=== PATIENT | male | born 1975 | race Hispanic/Latino ===

== ENCOUNTER 2019-05-28 15:13 | Emergency (ER) | payer OTHER ==
[~2019-05-28] VITALS: Ht 165.1 cm; Wt 128.9 kg
[~2019-05-28 15:13] MED LIST: ULTRAM 50MG50 MG PO
--- OUTSIDE RECORDS SUMMARY | 2019-05-28 15:15 | XMS REPORT ---
Author Author Vy Rhodes Organization [employer] Address Unknown Phone Unavailable Care Team Providers Care Seed Specialist Name Role Phone Vy Rhodes CP Unavailable Allergies, Adverse Reactions, Alerts Substance Reaction Event Type N.K.D.A. Info Not Available Non Drug Allergy Problems Problem Type Condition Code Onset Dates Condition Status Problem Sleep apnea in adult G47.30 Active Assessment Annual physical exam Z00.00 Active Problem Morbid obesity due to excess calories E66.01 Active Assessment Skin tags, multiple acquired L91.8 Active Assessment Morbid obesity due to excess calories E66.01 Active Assessment Sleep apnea in adult G47.30 Active Assessment Increased frequency of urination R35.0 Active Medications Medication Code System Code Instructions Start Date End Date Status Dosage NyQuil NDC 0 60-7.5-30-1000 MG/30ML Orally as needed (prn) Active 1 teaspoon Mucinex NDC [address]-02 600 MG by mouth daily Active 1 tablet as needed Vital Signs Date/Time: May 12, 2018 BMI 45.68 Index Weight 279.6 lbs Height 65.6 in Temperature 98.3 F Cardiac Monitoring Heart Rate 77 /min Blood Pressure Diastolic 86 mm Hg Blood Pressure Systolic 147 mm Hg Results No Known Results Summary Purpose [employer] Submission
--- OUTSIDE RECORDS SUMMARY | 2019-05-28 15:15 | XMS REPORT | Continuity of Care Document ---
Author Author [employer] Address Unknown Phone Unavailable Care Team Providers Care Store Receiver Name Role Phone PsomasFMG Unavailable Unavailable Problems Problem Status Onset Date Classification Date Reported Comments Source Sleep apnea in adult Active Problem 07/09/2018 [id number] Morbid obesity due to excess calories Active Problem 07/09/2018 [id number] Skin tags, multiple acquired Active Diagnosis 07/09/2018 [id number] Increased frequency of urination Active Diagnosis 07/09/2018 [id number] Medications Medication Details Route Status Patient Instructions Ordering Provider Order Date Source NyQuil 1 teaspoon Orally Active 60-7.5-30-1000 MG/30ML Orally as needed (prn) Carmelo [id number]..00625 Mucinex 1 tablet as needed by mouth Active 600 MG by mouth daily Carmelo 2.16.840.1.594949.4.391.11.70003 Allergies, Adverse Reactions, Alerts Substance Category Reaction Severity Reaction type Status Date Reported Comments Source N.K.D.A. Adverse Reaction Info Not Available Adverse Reaction Active 05/12/2018 [id number] Immunizations No Data Provided for This Section Results No Data Provided for This Section Pathology Reports No Data Provided for This Section Diagnostic Reports No Data Provided for This Section Consultation Notes No Data Provided for This Section Discharge Summaries No Data Provided for This Section History and Physicals No Data Provided for This Section Vital Signs Vital Sign Value Date Comments Source Weight 279.6 05/12/2018 [id number] Height 65.6 05/12/2018 2.16.840.1.186431.4.391..62124 Temperature Oral (F) 98.3 F 05/12/2018 2.16.840.1.651344.4.391.. Heart Rate 77 05/12/2018 2.16.840.1.628311.4.391.. Diastolic (mm Hg) 86 05/12/2018 2.16.840.1.149094.4.391. Systolic (mm Hg) 147 05/12/2018 2.16.840.1.426825.4.391..60033 Encounters No Data Provided for This Section Procedures No Data Provided for This Section Assessment and Plan No Data Provided for This Section Plan of Care No Data Provided for This Section Social History No Data Provided for This Section Family History No Data Provided for This Section Advance Directives No Data Provided for This Section Functional Status No Data Provided for This Section
--- NOTE | 2019-05-28 16:05 | Diagnostic Imaging Report ---
Exam: Left knee 3 views History: Pain Comparison: None. Findings: No fracture or malalignment. Joint spaces preserved. No abnormal soft tissue calcification or soft tissue defect. Impression: No acute osseous abnormality Signed by: Dr. Delbert Del Castillo M.D. on 05/28/2019 4:01 PM
[2019-05-28] MEDS ORDERED: HYDROCODONE/APAP 5MG-325MG TAB PO ONE (16:15)
[2019-05-28 16:57] VITALS: BP 111/71
== END 2019-05-28 16:56 | disposition home or self-care (01) ==
LOC: FSED 15:13
DX: M25.562 Pain in left knee (principal); Y93.11 Activity, swimming; M25.462 Effusion, left knee
CPT/HCPCS: 99283

== ENCOUNTER 2019-07-09 20:52 | Emergency (ER) | payer OTHER ==
[~2019-07-09] VITALS: Ht 165.1 cm; Wt 124.7 kg
--- OUTSIDE RECORDS SUMMARY | 2019-07-09 20:54 | XMS REPORT ---
Author Author [facility] Address Unknown Phone Unavailable Care Team Providers Care Hris Analyst Name Role Phone Alta WHITE Unavailable Unavailable Problems This patient has no known problems. Allergies, Adverse Reactions, Alerts This patient has no known allergies or adverse reactions. Medications This patient has no known medications. Results Test Description Test Time Test Comments Text Results Atomic Results Result Comments KNEE 3VW LT - HOPD 2019-05-28 16:00:00 [place] [address] Patient Name: NAPOLEON ROBBINS III MR #: [id number] : 1975 Age/Sex: 43/M Req #: [id number] Adm Physician: Ordered by: TANISHA WHITE MD Report #: [id number] Location: [facility] Room/Bed: Procedure: [id number] HOPD/KNEE 3VW LT - HOPD Exam Date: 05/28/19 Exam Time: 1558 REPORT STATUS: Signed Exam: Left knee 3 views History: Pain Comparison: None. Findings: No fracture or malalignment. Joint spaces preserved. No abnormal soft tissue calcification or soft tissue defect. Impression: No acute osseous abnormality Signed by: Dr. Sadiq Nguyen M.D. on 05/28/2019 4:01 PM Dictated By: SADIQ NGUYEN MD 1601 Transcribed By: DAILY on 05/28/19 1601 COPY TO: TANISHA WHITE MD
--- OUTSIDE RECORDS SUMMARY | 2019-07-09 20:54 | XMS REPORT | Summary of Care ---
Author Author SADIQ GEORGES M.D. Organization Unknown Address [facility] Phone Unavailable Care Team Providers Care Car Restorer Name Role Phone SADIQ GEORGES M.D. Unavailable Unavailable SADIQ BELTRAN Unavailable Unavailable Unavailable Unavailable Functional Status Name Dates Details Functional status health issues are not documented Status: Name Dates Details Cognitive status health issues are not documented Status: Problems Name Dates Details Tendinitis of left quadriceps tendon (727.09, M76.892) Status: Active Other internal derangements of left knee (717.89, M23.8X2) Status: Active Medications Name Dates Details Meloxicam 7.5 MG Oral Tablet TAKE 1 TABLET DAILY WITH FOOD. Quantity: 30 SADIQ GEORGES M.D. * Start : 08-Jun-2019 Active Methocarbamol 500 MG Oral Tablet TAKE 1 TABLET 3 TIMES DAILY. * Quantity: 30 Refills: 1 SADIQ GEORGES M.D. * Start : 08-Jun-2019 Active Ibuprofen 800 MG Oral Tablet * Refills: 0 Active Allergies and Adverse Reactions Name Dates Details iodine (Allergy) Status: Active Past Medical History Name Dates Details History of No significant past medical history Status: Resolved Procedures Procedure Dates Details MR Knee wo contrast [id number] Date: 08-Jun-2019 History of Hernia repair Completed Immunization Name Dates Details Immunizations not documented Social History Name Dates Details - Status: Name Dates Details Never smoker Vital Signs Date Test Result Details No Known Vitals to report Results Date Description Value Details Results not documented Plan of Care Name Dates Details Planned Observations Planned Goals not documented Interventions Provided Medication Changes* Meloxicam 7.5 MG Oral Tablet - Start * Methocarbamol 500 MG Oral Tablet - Start Labs/Procedures/Imaging* MR Knee wo contrast [id number]; To Be Done: 08 Jun 2019 Plan* Patient Education/Instructions: * Patient Education Provided * Reassurance * Patient/Parent to call or return with any abnormal changes * Orders: * Physical Therapy * Medications: * Medications (prescribed or recommended at this visit): Medication was prescribed or recommended. Dosage, administration, and common potential side effects were reviewed. Please confirm and review medication information and directions with the pharmacist. * - Mobic 7.5mg. Take 1 daily as needed for pain. Mobic (meloxicam) is an anti-inflammatory, pain medication. Take with food and only as prescribed by a physician. * - Robaxin 750mg. Take 2 every 8 hours as needed for spasm. Robaxin (methocarbamol) is a muscle relaxant medication. Use only as directed. DO NOT drive or operate machinery while using this medication. * - Voltaren Gel (diclofenac topical gel) is a topical, nonsteroidal anti-inflammatory medication. Apply Voltaren gel four times daily to the affected area as needed for pain. Use the dosing card for application. DO NOT exceed 32g per day. Do not take oral NSAIDs while using this medication. * - Take 500mg - 1000mg of acetaminophen (Tylenol) every 4-6 hours as needed for relief of pain, discomfort, or fever. Do NOT take more than 4000mg in a 24 hour period (can cause liver damage in higher doses). * MRI Scan MRI: Without Contrast and Left knee * Follow Up: * Return to the clinic after imaging study completed or as needed. Instructions Name Dates Details Instructions not documented Encounters Appointment; SADIQ GEORGES M.D. Encounter Diagnosis: Problem not documented On: 08-Jun-2019 10:15
--- OUTSIDE RECORDS SUMMARY | 2019-07-09 20:54 | XMS REPORT | Continuity of Care Document ---
Author Author [facility] Address Unknown Phone Unavailable Care Team Providers Care Electrical Power Station Technician Name Role Phone [employer] Unavailable Unavailable Problems Problem Status Onset Date Classification Date Reported Comments Source Sleep apnea in adult Active Problem 07/09/2018 2.16840.1.741280.4.391.11.31573 Morbid obesity due to excess calories Active Problem 07/09/2018 2.16840.1.154742.4.391.11.29565 Skin tags, multiple acquired Active Diagnosis 07/09/2018 2.16840.1.308417.4.391.11.05620 Increased frequency of urination Active Diagnosis 07/09/2018 2.16840.1.358239.4.391.11.87288 Medications Medication Details Route Status Patient Instructions Ordering Provider Order Date Source NyQuil 1 teaspoon Orally Active 60-7.5-30-1000 MG/30ML Orally as needed (prn) Carmelo 2.16.840.1.975485.4.391..19661 Mucinex 1 tablet as needed by mouth Active 600 MG by mouth daily Carmelo 2.16.840.1.506714.4.391.11.98173 Allergies, Adverse Reactions, Alerts Substance Category Reaction Severity Reaction type Status Date Reported Comments Source N.K.D.A. Adverse Reaction Info Not Available Adverse Reaction Active 05/12/2018 2.16840.1.431976.4.391.11.20050 Immunizations No Data Provided for This Section [...] Value Date Comments Source Weight 279.6 05/12/2018 2.16.840.1.339431.4.391.11.92275 Height 65.6 05/12/2018 2.16.840.1.213875.4.391..34222 Temperature Oral (F) 98.3 F 05/12/2018 2.16.840.1.314299.4.391.. Heart Rate 77 05/12/2018 2.16.840.1.824822.4.391.. Diastolic (mm Hg) 86 05/12/2018 2.16.840.1.014831.4.391. Systolic (mm Hg) 147 05/12/2018 2.16.840.1.454083.4.391..08695 Encounters No Data Provided for This Section [...]
[2019-07-09] MEDS ORDERED: BACTRIM DS TAB1 EACH PO (21:09)
[2019-07-09] MEDS ORDERED: KEFLEX500 MG PO (21:09)
[2019-07-09] MEDS ORDERED: VANCOMYCIN 1GM/NS 250 ML 250 ML IV ONE (21:15)
[2019-07-09] MEDS ORDERED: SODIUM CHLORIDE 0.9% 1000ML 1,000 ML IV SCH (21:15)
[2019-07-09] MEDS ORDERED: VANCOMYCIN 1GM/NS 250 ML 250 ML ONE (21:18)
[2019-07-09] MEDS ORDERED: SODIUM CHLORIDE 0.9% 1000ML 1,000 ML ONE (21:18)
[2019-07-09 23:09] VITALS: BP 160/97
== END 2019-07-09 23:13 | disposition home or self-care (01) ==
LOC: FSED 20:52
DX: L03.115 Cellulitis of right lower limb (principal); Z91.041 Radiographic dye allergy status
CPT/HCPCS: 80053; 85025; 96365; 99283; J3370; J7030

== ENCOUNTER 2019-08-21 09:54 | Inpatient (IN) | payer OTHER ==
[~2019-08-21] VITALS: Ht 167.6 cm; Wt 125.6 kg
[~2019-08-21 09:54] MED LIST changes: +BACTRIM DS TAB1 EACH PO; +KEFLEX500 MG PO
[2019-08-21] MEDS ORDERED: SODIUM CHLORIDE 0.9% 1000ML 1,000 ML IV STA (10:09)
--- NOTE | 2019-08-21 10:19 | NUR ---
[facility] [facility] CALLED FOR [facility] AND [facility]ACT[facility]
[2019-08-21] MEDS: VANCOMYCIN 1GM/NS 250 ML 250 ML IV SCH ×3 (10:21→22:06)
[2019-08-21] MEDS: PIPER-TAZ 3.375 GM 50 ML IV SCH ×3 (10:22→22:55)
[2019-08-21] MEDS ORDERED: PIPER-TAZ 3.375 GM 50 ML ONE (10:27)
[2019-08-21] MEDS ORDERED: VANCOMYCIN 1GM/NS 250 ML 250 ML ONE (10:28)
[2019-08-21] MEDS ORDERED: SODIUM CHLORIDE 0.9% 1000ML 1,000 ML ONE (10:28)
[2019-08-21] MEDS ORDERED: ACETAMINOPHEN 325 MG TAB ONE (10:40)
[2019-08-21] MEDS ORDERED: TYLENOL # 31 EA PO (10:41)
[2019-08-21] MEDS ORDERED: MOTRIN800 MG (10:41)
[2019-08-21] MEDS ORDERED: MELOXICAM7.5 MG (10:41)
[2019-08-21] MEDS ORDERED: METHOCARBAMOL500 MG (10:41)
--- NOTE | 2019-08-21 10:42 | NUR ---
[facility] called for transport
[2019-08-21] MEDS ORDERED: IBUPROFEN 200 MG TAB PO PRN (10:45)
--- NOTE | 2019-08-21 10:47 | NUR ---
"nurse going to be [place]an[place], but he isn't here right now, so I'm gonna have him call you back."
[2019-08-21] MEDS ORDERED: ACETAMINOPHEN 325 MG TAB PO ONE (11:00)
--- NOTE | 2019-08-21 11:04 | NUR ---
2nd attempt report;
[2019-08-21 11:21] VITALS: BP 138/69
[2019-08-21] MEDS ORDERED: CLONIDINE HCL 0.1 MG TAB PO PRN (11:30)
[2019-08-21] MEDS ORDERED: HYDRALAZINE HCL 20 MG/ML VIAL IV PRN (11:30)
[2019-08-21] MEDS ORDERED: ENALAPRILAT IV INJ 1.25 MG/ML VIAL IV PRN (11:30)
[2019-08-21] MEDS ORDERED: ZOLPIDEM TARTRATE 5 MG TAB PO PRN (11:30)
[2019-08-21] MEDS ORDERED: DIPHENHYDRAMINE HCL INJ 50 MG/ML VIAL IV PRN (11:30)
[2019-08-21] MEDS ORDERED: LACTULOSE SYRUP 20 GM/30 ML UDC PO PRN (11:30)
--- NOTE | 2019-08-21 11:58 | NUR ---
Patient a/ox3, no resp distress, received from [facility], cellulitis to left foot, failed outpatient treatment, currently on Vancomycin and Pectezo abx, tolerated well, VSS, afebrile, call light within reach, bed in low locked position, will monitor.
[2019-08-21] MEDS ORDERED: IBUPROFEN 600 MG TAB PO PRN (12:15)
[2019-08-21 12:35] VITALS: BP 138/69
[2019-08-21 16:38] VITALS: BP 141/65
--- NOTE | 2019-08-21 17:54 | NUR ---
Patient presenting with fever 100.9, medicated with Tylenol and Ibuprofen for throbbing pain to left foot. Blood cultures pending.
[2019-08-21] MEDS: ACETAMINOPHEN 325 MG TAB PO PRN (18:05)
--- NOTE | 2019-08-21 19:09 | NUR ---
Patient alert and responsive, pains well controlled, no resp distress, call light within reach, report given to on coming nurse and rounds completed. Patient stable.
[2019-08-21 20:00] VITALS: BP 108/52
[2019-08-21] MEDS ORDERED: CELECOXIB 200 MG CAP PO ONE (22:15)
[2019-08-21] MEDS ORDERED: HYDROCODONE/APAP 10MG-325MG TAB PO PRN (22:15)
[2019-08-21 23:50] VITALS: BP 108/52
[2019-08-22] VITALS (9 sets, daily range): BP systolic 108–146; BP diastolic 62–90
[2019-08-22] MEDS: PIPER-TAZ 3.375 GM 50 ML IV SCH ×4 (05:03→23:58)
[2019-08-22 06:20] LABS: BASOPHILS % 0.3 % (0.0-1.0); EOSINOPHILS # (AUTO) 0.2 (0.0-0.4); HEMATOCRIT 43.8 % (38.2-49.6); LYMPHOCYTES # (AUTO) 1.6 (1.0-3.2); LYMPHOCYTES % 17.4 % (18.0-39.1); MEAN CORPUSCULAR HEMOGLOBIN 29.9 pg (28-32); MEAN CORPUSCULAR VOLUME 93.6 fL (81-99); MONOCYTES # (AUTO) 1.1 (0.2-0.8); NEUTROPHILS # (AUTO) 6.2 (2.1-6.9); NEUTROPHILS % 67.6 % (38.7-80.0); PLATELET COUNT 177 x10e3/uL (140-360); RED BLOOD COUNT 4.68 x10e6/uL (4.3-5.7); RED CELL DISTRIBUTION WIDTH 12.7 % (11.7-14.4)
[2019-08-22 06:37] LABS: ANION GAP 13.2 mmol/L (8-16); BLOOD UREA NITROGEN 11 mg/dL (7-26); BUN/CREATININE RATIO 11 (6-25); CALCIUM 8.7 mg/dL (8.4-10.2); CARBON DIOXIDE 25 mmol/L (22-29); CHLORIDE 106 mmol/L (98-107); CREATININE, SERUM 0.98 mg/dL (0.72-1.25); EST GLOMERULAR FILTRATION RATE > 60 ML/MIN (60-); GLUCOSE 114 mg/dL (74-118); POTASSIUM 4.2 mmol/L (3.5-5.1); SODIUM 140 mmol/L (136-145)
--- NOTE | 2019-08-22 07:00 | NUR ---
RECEIVED PATIENT ASLEEP AT THIS TIME. NO SIGNS OF DISTRESS. BED LOW, WHEELS LOCKED, SIDE RAILS X2. CALL LIGHT IN REACH WILL CONTINUE TO MONITOR PATIENT.
[2019-08-22] MEDS: CELECOXIB 100 MG CAP PO SCH ×2 (08:42→17:01)
--- NOTE | 2019-08-22 09:45 | NUR ---
PATIENT A/O X3, EVEN RESPIRATIONS ON RA. LUNG SOUNDS CLEAR TO AUSCULTATION. BOWEL SOUNDS PRESENT X4. LEFT UA 20 GAUGE IV SL. REDNESS TO RIGHT MALDONADO. PATIENT AMBULATES INDEPENDENTLY. NO PAIN AT THIS TIME. CALL LIGHT IN REACH WILL CONTINUE TO MONITOR PATIENT.
[2019-08-22] MEDS: VANCOMYCIN 1GM/NS 250 ML 250 ML IV SCH ×2 (10:34→22:36)
--- NOTE | 2019-08-22 13:09 | Progress Note ---
DATE: 08/22/2019 SUBJECTIVE: Mr. Duke is seen today. He is currently lying in bed comfortably. The leg is slightly better. He is feeling slightly better. There is still some redness and swelling. REVIEW OF SYSTEMS: Otherwise unremarkable. PHYSICAL EXAMINATION: GENERAL: He is currently alert, oriented, does not seem to be in acute distress. VITAL SIGNS: Stable currently, afebrile. HEENT: Not icteric. NECK: Supple. CHEST: Clear. HEART: S1, S2. No S3, S4, or murmur. ABDOMEN: Soft and obese. No tenderness. No hepatosplenomegaly. EXTREMITIES: No edema. The leg, there is still redness and swelling as mentioned above, but a lot better. LABORATORY DATA: Blood cultures, no growth 24 hours. White count 9.08 and hemoglobin 14. Sodium 140, potassium 4.2, and creatinine 0.98. IMPRESSION: 1. Cellulitis of the leg is slowly getting better. 2. Obesity. 3. Hypertension. RECOMMENDATION: Since he failed oral antibiotic, we will get a trough. We will get a PICC line. Continue vancomycin. We will arrange home IV antibiotic for a week with close observation. MD BENEDICT Serrato/GERRI /[id number]
--- NOTE | 2019-08-22 14:45 | History and Physical ---
PRIMARY CARE PHYSICIAN: Vy Rhodes MD. COMPOUND COATING MACHINE OFFBEARER: Chhaya Cristobal MD. CHIEF COMPLAINT: Recurrent right lower extremity cellulitis below the knee area. HISTORY OF PRESENT ILLNESS: This is a 44-year-old male with right lower extremity cellulitis started approximately 3 weeks ago. The patient did go to the emergency room, was given antibiotics. The patient subsequently went home, finished up the antibiotic, and the infection resolved. However, the patient's infection to the lower extremity recurred and the patient was given antibiotics again by his family physician and then subsequently did not improve, where the patient then subsequently went to the emergency room for admission. The patient is currently on Zosyn and vancomycin. The patient is seen Dr. Chhaya Cristobal for consultation. He is stable. PAST MEDICAL HISTORY: Osteoarthritis. PAST SURGICAL HISTORY: Noncontributory. SOCIAL HISTORY: The patient does not smoke or use alcohol. No regular drugs. ALLERGIES: TO IODINE. HOME MEDICATIONS: Tylenol #3, ibuprofen, meloxicam, and Robaxin. PHYSICAL EXAMINATION: VITAL SIGNS: Temperature is 96, blood pressure 108/74, pulse rate 52, and respirations 18. GENERAL: The patient is not in acute distress. He is awake. HEENT: Normocephalic and atraumatic. Pupils reactive. Anicteric. NECK: Supple grossly. PULMONARY: Diminished breath sounds without any wheezing or rales. CARDIOVASCULAR: S1 and S2. Regular rate and rhythm. ABDOMEN: Soft and obese. EXTREMITIES: Right lower extremity; in the anterior dorsal surface area of the lower extremity below the knee and above the ankle, there is patchy redness without any portal of entry and without any discharge. NEUROLOGIC: No focal deficit. LABORATORY DATA: Sodium 140, potassium 4.2, chloride 106, bicarb 25, BUN 11, creatinine 0.9, and glucose 114. WBC is 9.1, hemoglobin 14, hematocrit 43.8, and platelets is 177. IMPRESSION: Right lower extremity cellulitis, failed outpatient treatment and multiple antibiotics. It went away and then reoccur and then failed the treatment. PLAN: Continue with current antibiotics. Consultation with Dr. Chhaya Cristobal. We will monitor the patient closely. It does not seem to be a vascular problem. There is no sign of venous stasis ulcer or skin changes. There is no significant varicosity. Pulses are intact both bilaterally. The patient does have onychomycosis of the toenail, but other than that, there is no other significant abnormality. MD ALE Benz/GERRI /[id number]
--- NOTE | 2019-08-22 16:28 | NUR ---
PICC tip is in SVC per radiologist Dr Schwarz. PICC okay to use
--- NOTE | 2019-08-22 16:31 | Diagnostic Imaging Report ---
EXAMINATION: CHEST XRAY LINE PLACEMENT INDICATION: Line placement COMPARISON: None FINDINGS: LINES/TUBES:Right PICC line terminates in the superior vena cava. LUNGS:The lungs are moderately inflated. No focal consolidation or pulmonary edema. PLEURA:No pleural effusion or pneumothorax. MEDIASTINUM:The cardiomediastinal silhouette appears normal in size and shape. BONES/SOFT TISSUES:No acute osseous injury. ABDOMEN:No free air under the diaphragm. IMPRESSION: Right PICC line terminates in the superior vena cava. No focal pneumonia or pulmonary edema. Signed by: Carlitos Schwarz MD on 08/22/2019 4:28 PM
[2019-08-23] VITALS (7 sets, daily range): BP systolic 110–160; BP diastolic 61–78
--- NOTE | 2019-08-23 03:54 | Consultation ---
DATE OF CONSULTATION: 08/22/2019 Discussed with the ER physician. HISTORY OF PRESENT ILLNESS: The patient, who is a very pleasant 44-year-old male. He is telling me 3 weeks ago he had history of cellulitis of his leg. He went to see the ER physician. The patient was given vancomycin and then he was discharged with Bactrim and clindamycin without any improvement, and he came back. He is telling me that originally the rash got better, but then it seem never went away, but it came back now with fever and chills. The rash is a lot worse. He went to the emergency room where he was admitted for IV antibiotics since he failed oral antibiotic. The patient is complaining of pain, redness and swelling of his right leg. 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 HOME MEDICATIONS: He is on Celebrex, Tylenol, Catapres, and Vasotec. PAST SURGICAL HISTORY: Denies. PAST MEDICAL HISTORY: Obesity and hypertension. FAMILY HISTORY: Noncontributory. REVIEW OF SYSTEMS: HEENT: Negative. PULMONARY: Negative. CARDIAC: Negative. Beside what mentioned above, he denies any. LABORATORY DATA: Reviewed. Chart reviewed. PHYSICAL EXAMINATION: GENERAL: He is currently alert and oriented. Does not seem to be in acute distress. VITALS STABLE: Stable, currently afebrile. HEENT: He is not icteric. Normocephalic. NECK: Supple. No JVD. No lymphadenopathy. No thyromegaly. CHEST: Clear bilateral. HEART: S1 and S2. No S3, S4, or murmur. ABDOMEN: Soft. Bowel sounds present. No tenderness. Obese. EXTREMITIES: There is redness and erythema involving his right leg about 15 cm in length and 5 in wide with some induration. Of interest, when he was in the emergency room, his temperature was 100.5, heart rate 106, and blood pressure 160/87. His height is 5 feet 5 inches and his weight is 165 pounds. IMPRESSION: 1. Cellulitis of the leg, early sepsis due to cellulitis, failed oral antibiotic. Agree with vancomycin. Agree with Zosyn. Discussed with the patient. We will observe clinically. We will reassess this. 2. He may need to be on a week or 2 of IV antibiotics since he failed oral antibiotic. 3. Lab data reviewed. Sodium 140, potassium 4.2, his BUN 11, creatinine 0.98 with hemoglobin of 14. 4. We will follow with you. Thank you for asking me to see this patient. MD BENEDICT Serrato/MODJesus /[id number]
[2019-08-23] MEDS: PIPER-TAZ 3.375 GM 50 ML IV SCH ×3 (05:30→16:10)
[2019-08-23] MEDS: VANCOMYCIN 1GM/NS 250 ML 250 ML IV SCH ×2 (08:46→21:37)
[2019-08-23] MEDS: CELECOXIB 100 MG CAP PO SCH ×2 (08:46→16:10)
[2019-08-23] MEDS: ACETAMINOPHEN 325 MG TAB PO PRN (10:41)
--- NOTE | 2019-08-23 15:56 | NUR ---
Received call from HARLEY CM partner integration planner Ethel from [employer] [employer]. [phone]. She states she understands patient may need IV abx for home, states these companies are in network: [employer], [employer], [employer] Received order from Dr. Cristobal for IV antibiotics for OP. Patient needs IV Vancomycin 1G q12 for 10 days for leg cellulitis. He states is concerned about pricing. Call [employer] ([employer]) for pricing estimate who states they need a facesheet. Spoke to family about need for antibiotics, they give consent to send info to [employer]. Faxed info to [employer], awaiting a response.
--- NOTE | 2019-08-23 17:23 | Progress Note ---
DATE: SUBJECTIVE: Mr. Casey is feeling better today. The leg is slowly getting better. REVIEW OF SYSTEMS: HEENT: Negative. PULMONARY: Negative. CARDIAC: Negative. LABORATORY DATA: Reviewed. Cultures reviewed. There is no new data. His vancomycin trough was 6.2. PHYSICAL EXAMINATION: GENERAL: He is currently alert, oriented, does not seem to be in acute distress. VITAL SIGNS: Stable, afebrile. HEENT: Normocephalic, not icteric. NECK: Supple. CHEST: Clear. HEART: S1 and S2. No S3, S4, or murmurs. ABDOMEN: Soft and obese. EXTREMITIES: Right leg erythema and edema subsiding, it is about 10 to 5 cm, but seems to be less edematous. IMPRESSION AND PLAN: Cellulitis of the right leg, failed oral antibiotic. I would recommend to continue vancomycin for another 10 days. PICC line was inserted. Discussed with the patient. Discussed with his , she wants to know what is her share if he goes outpatient. I told Case Management was going to talk with the insurance to give her the information. MD BENEDICT Serrato/GERRI /[id number]
--- NOTE | 2019-08-23 19:10 | NUR ---
REPORT TAKEN FROM MORNING RN.STABLE CONDITION.
--- NOTE | 2019-08-23 19:10 | NUR ---
Report given to oncoming nurse of patient's status. No s/s of acute distress noted. at bedside call light within reach.
--- NOTE | 2019-08-23 21:44 | NUR ---
Assessment done.no pain voiced.no resp.distress.bed locked and in lowest position.phone and call light within reach.instructed to call for assistance as needed.
[2019-08-24] MEDS: PIPER-TAZ 3.375 GM 50 ML IV SCH ×2 (00:03→05:32)
[2019-08-24 00:52] VITALS: BP 115/57
[2019-08-24 04:42] VITALS: BP 121/58
--- NOTE | 2019-08-24 06:40 | NUR ---
Bed side shift report given to the oncoming Rn.stable condition.
[2019-08-24] MEDS ORDERED: SODIUM CHLORIDE 0.9% 250ML 250 ML ONE (07:22)
[2019-08-24 07:56] VITALS: BP 106/52
[2019-08-24 08:03] VITALS: BP 117/69
[2019-08-24] MEDS: CELECOXIB 100 MG CAP PO SCH ×2 (08:57→17:56)
[2019-08-24 09:14] LABS: BASOPHILS % 0.4 % (0.0-1.0); EOSINOPHILS # (AUTO) 0.3 (0.0-0.4); HEMATOCRIT 45.7 % (38.2-49.6); HEMOGLOBIN 14.7 g/dL (14.0-18.0); LYMPHOCYTES # (AUTO) 1.9 (1.0-3.2); LYMPHOCYTES % 28.3 % (18.0-39.1); MEAN CORPUSCULAR HGB CONC 32.2 g/dL (31-35); MEAN CORPUSCULAR VOLUME 93.3 fL (81-99); MONOCYTES # (AUTO) 0.5 (0.2-0.8); MONOCYTES % 7.1 % (4.4-11.3); NEUTROPHILS % 58.6 % (38.7-80.0); PLATELET COUNT 223 x10e3/uL (140-360); RED CELL DISTRIBUTION WIDTH 12.6 % (11.7-14.4)
[2019-08-24 09:35] LABS: ANION GAP 13.9 mmol/L (8-16); BLOOD UREA NITROGEN 11 mg/dL (7-26); BUN/CREATININE RATIO 13 (6-25); CALCIUM 9.3 mg/dL (8.4-10.2); CARBON DIOXIDE 25 mmol/L (22-29); CHLORIDE 103 mmol/L (98-107); CREATININE, SERUM 0.88 mg/dL (0.72-1.25); EST GLOMERULAR FILTRATION RATE > 60 ML/MIN (60-); GLUCOSE 108 mg/dL (74-118); POTASSIUM 3.9 mmol/L (3.5-5.1); SODIUM 138 mmol/L (136-145)
--- NOTE | 2019-08-24 10:00 | NUR ---
Visit made by the Spiritual Care Department Pastoral Visitor, Omaira Fisher. PV provided prayer, hospitality, and communion. Pastoral Visitor informed pt/family of the scope of [facility] and availability. MARIKA VITAL [employer] [employer] Spiritual Care Department O: [phone] Pager: [phone] ([phone] number calling from)
[2019-08-24] MEDS: VANCOMYCIN 1GM/NS 250 ML 250 ML IV SCH (10:19)
--- NOTE | 2019-08-24 11:14 | NUR ---
Spoke to Jakob farnsworth about pricing for IV antibiotics. Marcela states each dose of IV meds is about 12.50 dollars a day and each nurse visit is about 15 dollars. Discussed with patient and who agree to this pricing. Spoke to Riky to see if there is anything else needed before d/c, updated clinicals faxed. Marcela will reach out to patient to collect payment then patient will be ready to d/c. Notified patient of this.
[2019-08-24 12:25] VITALS: BP 137/84
[2019-08-24] MEDS ORDERED: PIPER-TAZ 3.375 GM 50 ML IV SCH (14:00)
[2019-08-24] MEDS ORDERED: ZOFRAN4 MG SL (15:50)
[2019-08-24] MEDS ORDERED: CELEBREX100 MG PO (15:52)
[2019-08-24 16:30] VITALS: BP 121/60
--- NOTE | 2019-08-24 16:41 | NUR ---
paged to notify patient cleared to discharge from ID standpoint. Awaiting call back
--- NOTE | 2019-08-24 17:41 | NUR ---
Patient states " I want to go home" Repaged
--- NOTE | 2019-08-24 17:46 | NUR ---
Per "discharge patient"
--- NOTE | 2019-08-24 18:00 | NUR ---
Taken via wheelchair to personal car. Accompanied by . AAOX4 to time, person, place, situation. Respirations even and unlabored. PICC line dressing clean, dry, and intact.( Patient discharged with PICC line as ordered for IV antibiotics). No signs of infiltration noted. Discharge instructions, rx, and all personal belongings taken with patient.
== END 2019-08-24 18:00 | disposition home or self-care (01) | DRG 603 ==
LOC: FSED 09:54 → ERHOLD 10:22 → MED/SURG 11:38
PROVIDERS: ADMIT Internal Medicine; ATTEND Internal Medicine
PROC: 02HV33Z Insertion of Infusion Device into Superior Vena Cava, Percutaneous Approach (ICD-10-PCS; principal; 2019-08-22)
DX: L03.115 Cellulitis of right lower limb (principal); Z68.41 Body mass index [BMI] 40.0-44.9, adult; I10 Essential (primary) hypertension; I87.2 Venous insufficiency (chronic) (peripheral); E66.9 Obesity, unspecified
CPT/HCPCS: 36415; 36569; 71045; 80048; 80202; 85025; 87040; 99284; J2543; J3370; J7030; J7050

== ENCOUNTER 2019-09-27 11:19 | Emergency (ER) | payer OTHER ==
[~2019-09-27] VITALS: Ht 167.6 cm; Wt 125.6 kg
[~2019-09-27 11:19] MED LIST changes: +CELEBREX100 MG PO; +MELOXICAM7.5 MG; +METHOCARBAMOL500 MG; +MOTRIN800 MG; +TYLENOL # 31 EA PO; +ZOFRAN4 MG SL
== END 2019-09-27 12:11 | disposition home or self-care (01) ==
LOC: FSED 11:19
DX: L03.115 Cellulitis of right lower limb (principal); B35.3 Tinea pedis; B35.1 Tinea unguium
CPT/HCPCS: 99282

== ENCOUNTER 2021-03-24 12:27 | Emergency (ER) | payer BC ==
[~2021-03-24] VITALS: Ht 167.6 cm; Wt 128.8 kg
[2021-03-24] MEDS ORDERED: METOCLOPRAMIDE HCL 10 MG/2ML VIAL IM STA (12:41)
[2021-03-24] MEDS ORDERED: KETOROLAC TROMETHAMINE 60 MG/2 ML VIAL IM ONE (12:45)
[2021-03-24] MEDS ORDERED: DIPHENHYDRAMINE HCL 25 MG CAP PO ONE (12:45)
[2021-03-24] MEDS ORDERED: METOCLOPRAMIDE HCL 10 MG/2ML VIAL ONE (13:15)
[2021-03-24] MEDS ORDERED: DIPHENHYDRAMINE HCL 25 MG CAP ONE (13:15)
[2021-03-24] MEDS ORDERED: KETOROLAC TROMETHAMINE 60 MG/2 ML VIAL ONE (13:15)
[2021-03-24] MEDS ORDERED: FIORICET 50-301 EACH PO (13:47)
== END 2021-03-24 14:02 | disposition home or self-care (01) ==
LOC: FSED 12:34
DX: R51.9 Headache, unspecified (principal)
CPT/HCPCS: 70450; 96372; 99283; J1885; J2765

== ENCOUNTER 2021-08-15 07:47 | Emergency (ER) | payer BC ==
[~2021-08-15] VITALS: Ht 165.1 cm; Wt 124.7 kg
[~2021-08-15 07:47] MED LIST changes: +FIORICET 50-301 EACH PO
[2021-08-15] MEDS ORDERED: COLCRYS0.6 MG PO (08:09)
[2021-08-15] MEDS ORDERED: INDOCIN50 MG PO (08:09)
[2021-08-15] MEDS ORDERED: HYDROCODONE/APAP 5MG-325MG TAB PO ONE (08:15)
== END 2021-08-15 09:37 | disposition home or self-care (01) ==
LOC: FSED 07:50
DX: M25.572 Pain in left ankle and joints of left foot (principal); M10.9 Gout, unspecified
CPT/HCPCS: 99283

== ENCOUNTER 2022-05-27 19:21 | Emergency (ER) | payer BC ==
[~2022-05-27] VITALS: Ht 167.6 cm; Wt 122.5 kg
[~2022-05-27 19:21] MED LIST changes: +COLCRYS0.6 MG PO; +INDOCIN50 MG PO
[2022-05-27] MEDS ORDERED: VALACYCLOVIR500 MG PO (20:25)
[2022-05-27] MEDS ORDERED: PREDNISONE50 MG PO (20:25)
[2022-05-27] MEDS ORDERED: DEXAMETHASONE SOD PHOS INJ 4 MG/ML SDV ONE (20:46)
[2022-05-27 21:00] VITALS: BP 133/0
[2022-05-27] MEDS ORDERED: DEXAMETHASONE SOD PHOS INJ 4 MG/ML SDV IV ONE (21:15)
== END 2022-05-27 21:00 | disposition home or self-care (01) ==
LOC: FSED 19:25
DX: R20.0 Anesthesia of skin (principal); G51.0 Bell's palsy; M10.9 Gout, unspecified
CPT/HCPCS: 70450; 80053; 82553; 84484; 85025; 93005; 96374; 99284; J1100

== ENCOUNTER 2022-08-06 01:23 | Emergency (ER) | payer BC ==
[~2022-08-06] VITALS: Ht 165.1 cm; Wt 132.0 kg
[~2022-08-06 01:23] MED LIST changes: +PREDNISONE50 MG PO; +VALACYCLOVIR500 MG PO
[2022-08-06] MEDS ORDERED: IBUPROFEN 600 MG TAB ONE (02:02)
[2022-08-06] MEDS ORDERED: ONDANSETRON HCL 4 MG ORAL DISINTEGRATING TAB PO ONE (02:30)
[2022-08-06] MEDS ORDERED: OSELTAMIVIR PHOSPHATE 75 MG CAP PO ONE (02:30)
[2022-08-06] MEDS ORDERED: TAMIFLU75 MG PO (02:34)
[2022-08-06] MEDS ORDERED: ONDANSETRON ODT4 MG PO (02:35)
[2022-08-06] MEDS ORDERED: ONDANSETRON HCL 4 MG ORAL DISINTEGRATING TAB ONE (02:43)
[2022-08-06 02:50] VITALS: BP 159/95
== END 2022-08-06 02:50 | disposition home or self-care (01) ==
LOC: FSED 01:27
DX: R50.9 Fever, unspecified (principal); J10.1 Influenza due to other identified influenza virus with other respiratory manifestations; R11.0 Nausea; M10.9 Gout, unspecified
CPT/HCPCS: 81003; 87400; 83518; 99283; Q0162

== ENCOUNTER 2022-08-08 16:51 | Emergency (ER) | payer BC ==
[~2022-08-08] VITALS: Ht 165.1 cm; Wt 129.5 kg
[~2022-08-08 16:51] MED LIST changes: +ONDANSETRON ODT4 MG PO; +TAMIFLU75 MG PO
[2022-08-08] MEDS ORDERED: SODIUM CHLORIDE 0.9% 1000ML 1,000 ML IV STA (17:22)
[2022-08-08] MEDS ORDERED: KETOROLAC TROMETHAMINE 30 MG/ML VIAL IV STA (17:23)
[2022-08-08] MEDS ORDERED: KETOROLAC TROMETHAMINE 30 MG/ML VIAL ONE (17:50)
[2022-08-08] MEDS ORDERED: CEFTRIAXONE 1 GM VIAL ONE (17:50)
[2022-08-08] MEDS ORDERED: SODIUM CHLORIDE 0.9% 1000ML 1,000 ML ONE (17:50)
[2022-08-08] MEDS ORDERED: BACTRIM DS TAB1 EACH PO (18:38)
[2022-08-08] MEDS ORDERED: CEPHALEXIN500 MG PO (18:38)
== END 2022-08-08 19:10 | disposition home or self-care (01) ==
LOC: FSED 17:32
DX: L03.90 Cellulitis, unspecified (principal); M10.9 Gout, unspecified
CPT/HCPCS: 80053; 85025; 96374; 99284; J0696; J1885; J7030

== ENCOUNTER 2023-11-15 21:39 | Emergency (ER) | payer BC ==
[~2023-11-15] VITALS: Ht 165.1 cm; Wt 122.5 kg
[~2023-11-15 21:39] MED LIST changes: +CEPHALEXIN500 MG PO
[2023-11-15 21:50] VITALS: O2SAT 97
[2023-11-15] MEDS ORDERED: TYLENOL325 MG PO (22:35)
[2023-11-15] MEDS ORDERED: NAPROXEN250 MG PO (22:35)
== END 2023-11-15 22:41 | disposition home or self-care (01) ==
LOC: FSED 21:43
DX: M25.521 Pain in right elbow (principal); S53.491A Other sprain of right elbow, initial encounter; W18.39XA Other fall on same level, initial encounter; Y92.89 Other specified places as the place of occurrence of the external cause; M10.9 Gout, unspecified
CPT/HCPCS: 99283